=== PATIENT | male | born 1980 | race Two or more races ===

== ENCOUNTER 2016-08-01 13:36 | Emergency (ER) | payer OTHER ==
[~2016-08-01] VITALS: Ht 177.8 cm; Wt 104.3 kg
== END 2016-08-01 18:56 | disposition short-term general hospital (02) ==
LOC: ER 13:36
DX: E87.5 Hyperkalemia (principal); K21.9 Gastro-esophageal reflux disease without esophagitis; J45.909 Unspecified asthma, uncomplicated; Z88.2 Allergy status to sulfonamides; Z88.8 Allergy status to other drugs, medicaments and biological substances; Z87.891 Personal history of nicotine dependence